=== PATIENT | female | born 1930 | race Hispanic/Latino ===

== ENCOUNTER 2017-11-27 10:04 | Day surgery (SDC) | payer MEDICARE ==
[~2017-11-27] VITALS: Ht 139.7 cm; Wt 40.3 kg
[~2017-11-27 10:04] MED LIST: SODIUM CHLORIDE 0.9% 1000ML 1,000 ML IV ONE
[2017-11-27 10:53] VITALS: BP 220/71
[2017-11-27] MEDS ORDERED: LOSA100T29 PO (11:33)
[2017-11-27] MEDS ORDERED: CIPR-1 PO (11:33)
[2017-11-27] MEDS ORDERED: PRAV40TA3 PO (11:33)
[2017-11-27] MEDS ORDERED: CHOL200016 PO (11:33)
[2017-11-27] MEDS ORDERED: ESOM20CA39 PO (11:33)
[2017-11-27] MEDS ORDERED: METF500T6 PO (11:33)
[2017-11-27] MEDS ORDERED: DOCU-132 PO (11:33)
[2017-11-27] MEDS ORDERED: PROPOFOL 10 MG/ML 20ML VIAL IV ONE (11:38)
[2017-11-27 11:52] VITALS: BP 111/59
== END 2017-11-27 12:25 | disposition home or self-care (01) ==
LOC: DAH 10:04
PROVIDERS: ATTEND Internal Medicine
DX: K83.8 Other specified diseases of biliary tract (principal); K31.89 Other diseases of stomach and duodenum; I10 Essential (primary) hypertension; E78.00 Pure hypercholesterolemia, unspecified; F41.9 Anxiety disorder, unspecified; K21.9 Gastro-esophageal reflux disease without esophagitis; F32.9 Major depressive disorder, single episode, unspecified; E11.9 Type 2 diabetes mellitus without complications; D64.9 Anemia, unspecified; M19.90 Unspecified osteoarthritis, unspecified site; Z90.49 Acquired absence of other specified parts of digestive tract; Z90.710 Acquired absence of both cervix and uterus; Z98.890 Other specified postprocedural states; Z98.49 Cataract extraction status, unspecified eye; Z79.82 Long term (current) use of aspirin; Z79.899 Other long term (current) drug therapy; Z86.73 Personal history of transient ischemic attack (TIA), and cerebral infarction without residual deficits; Z79.84 Long term (current) use of oral hypoglycemic drugs
CPT/HCPCS: 43237; 82948 ×2; 93005; A4606; J2704; J7030; 43231

== ENCOUNTER 2018-10-31 13:13 | Emergency (ER) | payer MEDICARE ==
[~2018-10-31 13:13] MED LIST changes: +CHOL200059 PO; +CIPR-1 PO; +DOCU-132 PO; +ESOM20CA39 PO; +LOSA100T58 PO; +METF-444 PO; +PRAV40TA3 PO; -SODIUM CHLORIDE 0.9% 1000ML 1,000 ML IV ONE
[2018-10-31] MEDS ORDERED: LIDOCAINE HCL 2% VISCOUS 15 ML UDCUP ONE (13:26)
[2018-10-31] MEDS ORDERED: MAG HYDROX/AL HYDROX/SIMETH ES 30 ML SUSP UDCUP ONE (13:26)
== END 2018-10-31 15:08 | disposition home or self-care (01) ==
LOC: EDH 13:13
DX: T49.0X1A Poisoning by local antifungal, anti-infective and anti-inflammatory drugs, accidental (unintentional), initial encounter (principal); I10 Essential (primary) hypertension; E78.5 Hyperlipidemia, unspecified; K21.9 Gastro-esophageal reflux disease without esophagitis; Z90.49 Acquired absence of other specified parts of digestive tract; Z90.710 Acquired absence of both cervix and uterus; Z79.82 Long term (current) use of aspirin; Y92.89 Other specified places as the place of occurrence of the external cause